=== PATIENT | male | born 2000 | race Caucasian/White ===

== ENCOUNTER 2023-01-06 00:44 | Emergency (ER) | payer SELFPAY ==
[~2023-01-06] VITALS: Ht 182.9 cm; Wt 88.5 kg
--- NOTE | 2023-01-06 01:42 | NUR ---
BIBFRIEND FOR LOWER BACK PAIN AFTER GETTING OUT OF THE CAR, A/O X 4, ON ROOM AIR, NO SOB NOTED. PLACED ON BED COMFORTABLY. V/S TAKEN AND RECORDED.
[2023-01-06] MEDS ORDERED: HYDROMORPHONE 1 MG/1 ML DISP.SYRIN ONE (02:28)
[2023-01-06] MEDS ORDERED: CYCLOBENZAPRINE 10 MG TABLET ONE (02:28)
[2023-01-06] MEDS ORDERED: ONDANSETRON 4 MG TAB.RAPDIS ONE (02:29)
--- NOTE | 2023-01-06 02:29 | NUR ---
X-RAY AT BEDSIDE
[2023-01-06] MEDS ORDERED: CYCLOBENZAPRINE 10 MG TABLET PO ONE (02:30)
[2023-01-06] MEDS ORDERED: HYDROMORPHONE 1 MG/1 ML DISP.SYRIN IM ONE (02:30)
[2023-01-06] MEDS ORDERED: ONDANSETRON 4 MG TAB.RAPDIS SL ONE (02:30)
[2023-01-06] MEDS ORDERED: CYCL10TA9 PO (03:14)
[2023-01-06] MEDS ORDERED: OXYC-128 PO (03:14)
--- NOTE | 2023-01-06 03:43 | NUR ---
Patient discharged to home in stable condition. Ambulatory. Written and verbal after care instructions given. Patient verbalizes understanding of instruction.
[2023-01-06 03:54] VITALS: BP 125/80
== END 2023-01-06 03:45 | disposition home or self-care (01) ==
LOC: ER 01:03
DX: M54.50 Low back pain, unspecified (principal); Z79.899 Other long term (current) drug therapy
CPT/HCPCS: 99283; 96372; 72110; Q0162; J1170